=== PATIENT | female | born 1985 | race American Indian/Alaskan Native ===

== ENCOUNTER 2021-01-11 10:50 | Outpatient (CLI) | payer OTHER | END 2021-01-11 11:53 | disposition home or self-care (01) | LOC: NST 10:50 | PROVIDERS: ATTEND Obstetrics & Gynecology Maternal & Fetal Medicine | DX: O16.2 Unspecified maternal hypertension, second trimester (principal); Z3A.27 27 weeks gestation of pregnancy ==

== ENCOUNTER 2021-02-01 09:19 | Outpatient (CLI) | payer OTHER | END 2021-02-01 10:01 | disposition home or self-care (01) | LOC: NST 09:19 | PROVIDERS: ATTEND Obstetrics & Gynecology | DX: Z34.83 Encounter for supervision of other normal pregnancy, third trimester (principal) ==

== ENCOUNTER 2021-02-22 09:26 | Outpatient (CLI) | payer OTHER | END 2021-02-22 10:18 | disposition home or self-care (01) | LOC: NST 09:26 | PROVIDERS: ATTEND Obstetrics & Gynecology | DX: O32.1XX0 Maternal care for breech presentation, not applicable or unspecified (principal); O16.3 Unspecified maternal hypertension, third trimester ==

== ENCOUNTER 2021-03-08 10:20 | Outpatient (CLI) | payer OTHER | END 2021-03-08 11:15 | disposition home or self-care (01) | LOC: NST 10:20 | PROVIDERS: ATTEND Obstetrics & Gynecology | DX: Z34.83 Encounter for supervision of other normal pregnancy, third trimester (principal) ==

== ENCOUNTER → 2021-03-15 | Outpatient (CLI) | payer OTHER | END | disposition home or self-care (01) | LOC: NST 14:40 | PROVIDERS: ATTEND Obstetrics & Gynecology Maternal & Fetal Medicine | DX: O16.3 Unspecified maternal hypertension, third trimester (principal) ==

== ENCOUNTER → 2021-03-22 | Outpatient (CLI) | payer OTHER | END | disposition home or self-care (01) | LOC: NST 13:42 | PROVIDERS: ATTEND Obstetrics & Gynecology Maternal & Fetal Medicine | DX: Z34.83 Encounter for supervision of other normal pregnancy, third trimester (principal) ==

== ENCOUNTER 2021-03-29 14:45 | Inpatient (IN) | payer OTHER ==
[~2021-03-29] VITALS: Ht 160 cm; Wt 3.2 kg
[2021-04-04] MEDS ORDERED: LABETALOL 11 MG/1 ML PO (13:18)
[2021-04-04] MEDS ORDERED: PRENATAL TABLE1 EAC1 PO (13:18)
== END 2021-04-07 17:38 | disposition home or self-care (01) | DRG 787 ==
LOC: LDR 04-04 13:15 → OB/GYN 04-05 15:09
PROVIDERS: ADMIT Obstetrics & Gynecology; ATTEND Obstetrics & Gynecology
PROC: 4A1HXFZ Monitoring of Products of Conception, Cardiac Rhythm, External Approach (ICD-10-PCS; 2021-04-05)
PROC: 3E0P7VZ Introduction of Hormone into Female Reproductive, Via Natural or Artificial Opening (ICD-10-PCS; 2021-04-05)
PROC: 10D00Z1 Extraction of Products of Conception, Low, Open Approach (ICD-10-PCS; principal; 2021-04-05 13:00)
DX: O61.0 Failed medical induction of labor (principal); O10.02 Pre-existing essential hypertension complicating childbirth; O99.02 Anemia complicating childbirth; D64.9 Anemia, unspecified; Z3A.39 39 weeks gestation of pregnancy; Z37.0 Single live birth; Z20.822 Contact with and (suspected) exposure to COVID-19

== ENCOUNTER → 2021-03-29 | Outpatient (CLI) | payer OTHER ==
[~2021-03-29] MED LIST: LABETALOL 11 MG/1 ML PO; PRENATAL TABLE1 EAC1 PO
== END | disposition home or self-care (01) ==
LOC: NST 17:16
PROVIDERS: ATTEND Obstetrics & Gynecology
DX: Z34.83 Encounter for supervision of other normal pregnancy, third trimester (principal)

== ENCOUNTER 2021-04-01 12:01 | Outpatient (CLI) | payer OTHER | END 2021-04-01 12:54 | disposition home or self-care (01) | LOC: NST 12:01 | PROVIDERS: ATTEND Obstetrics & Gynecology | DX: Z34.83 Encounter for supervision of other normal pregnancy, third trimester (principal) ==